=== PATIENT | male | born 1955 | race Caucasian/White ===

== ENCOUNTER → 2017-03-04 | Outpatient (CLI) | payer OTHER ==
[~2017-03-04] MED LIST: ALBUTEROL2.5 MG/0.5 INH; DILANTIN100 MG PO; FOLGARD/FOLTAB1 TAB PO; HYDROXYZINE PAM50 MG PO; LIBRIUM5 MG PO; NICOTINE T21 MG/24 H T; NKHM; PAXIL10 MG PO; PREDNISONE10 MG PO; ROBAXIN750 MG PO; Theragran M,Cen1 TAB PO; VITAMIN B-11 TAB PO; ZITHROMAX250 MG PO
[2017-03-04 08:25] LABS: HEMATOCRIT 42.6 % (42.0-52.0); HEMOGLOBIN 14.8 g/dl (14.0-18.0); MEAN CELL VOLUME 94.9 fl (80.0-94.0); MEAN CORPUSCULAR HGB CONC 34.7 g/dl (33.0-37.0); MEAN PLATELET VOLUME 9.4 fl (9.6-12.3); PLATELET COUNT AUTOMATED 230 10*3/uL (130-400); RED BLOOD COUNT 4.49 10*6/uL (4.50-5.90); RED CELL DISTRI WIDTH 14.5 % (0-14.5); WHITE BLOOD COUNT 6.9 10*3/uL (4.8-10.8)
[2017-03-04 08:53] LABS: HEMOGLOBIN A1c 5.4 % (4.8-5.6)
[2017-03-04 09:02] LABS: BILIRUBIN, TOTAL 0.6 mg/dl (0.2-1.0); BUN 8 mg/dl (7-24); CARBON DIOXIDE 27 mmol/L (21-32); CHLORIDE 106 mmol/L (98-107); CHOLESTEROL 202 mg/dL (<200); EST GLOM FILT AFRICAN AMERICAN > 60 ml/min; GLUCOSE 78 mg/dL (65-99); POTASSIUM 4.3 mmol/L (3.5-5.1); SGOT/AST 25 IU/L (3-35); SGPT/ALT 22 U/L (12-78); SODIUM 141 mmol/L (136-145); TOTAL PROTEIN 7.1 gm/dL (6.4-8.2); TRIGLYCERIDES 66 mg/dl (<150); VLDL CHOLESTEROL 13 mg/dL (6-40)
[2017-03-04 09:11] LABS: ALKALINE PHOSPHATASE 92 U/L (45-117); HDL CHOLESTEROL 69 mg/dl (40-60); LDL CHOLESTEROL 120 mg/dL (9-159)
[2017-03-04 09:22] LABS: FOLIC ACID 12.74 ng/mL (>5.38); VITAMIN D, 25-HYDROXY 30.1 ng/mL (30-100)
[2017-03-04 09:24] LABS: ATYPICAL LYMPHS 1 % (0-0); BASOPHIL # 0.1 10*3/uL (0-0.1); BASOPHILS 1 % (0-1); EOSINOPHIL # 0.2 10*3/uL (0-0.4); EOSINOPHILS 3 % (1-4); LYMPHOCYTE # 2.1 10*3/uL (1.3-4.4); MONOCYTE # 0.6 10*3/uL (0.1-1.0); NEUTROPHILS 58 % (47-73); PLATELET SUFFICIENCY NORMAL (NORMAL); TOTAL CELLS COUNTED 100 #CELLS
== END | disposition home or self-care (01) ==
LOC: LAB 08:09
PROVIDERS: Family Medicine
DX: Z13.220 Encounter for screening for lipoid disorders (principal); F41.9 Anxiety disorder, unspecified; D53.9 Nutritional anemia, unspecified; F10.21 Alcohol dependence, in remission; R73.9 Hyperglycemia, unspecified; R79.89 Other specified abnormal findings of blood chemistry

== ENCOUNTER → 2017-03-22 | Outpatient (CLI) | payer OTHER ==
[~2017-03-22] MED LIST changes: +LEVAQUIN750 M1 PO; +PREDNISONE50 MG PO
--- NOTE | ~2017-03-22 | PF ---
[place], [place] PULMONARY FUNCTION TEST NAME: SHAMEKA MCCALLUM UNIT #: [id number] ROOM: DOCTOR: ELENO BECKETT MD,KAREN BIRTHDATE: [birth year] DOS: 03/22/2017 ORDERED BY: Joel Douglas DO HISTORY: The patient recorded as 61-year-old male, height of 64 inches, weight of 123 pounds with symptoms of shortness of breath with exertion and productive cough without any wheezing. Continued chronic tobacco use noted 1.5 pack of cigarettes per day for 40 years. SPIROMETRY: The FVC was recorded 3.10 liters, 81% predicted value normal. The FEV1 was noted 2.36 liters, 81% predicted value normal as well. The ratio of FEV1/FVC was recorded 76%. Flow volume loop was suggestive of mild obstructive airway pattern. Lung volumes, the spirometry was noted normal except mild obstructive lung disease was suggestive with the flow volume loop. Thoracic gas volume recorded 174%, residual volume 195%. RV/TLC ratio 169%, total lung capacity of 118%. Lung volumes suggestive of moderate air trapping. The patient's lung diffusion noted normal at 85%. The patient's airway resistance and passive conductance were noted normal. FINAL IMPRESSION: Possibility of mild obstructive lung disease can be completely excluded with current pulmonary function test. Clinical correlation was advised. KAREN JOHANSEN MD CM:PFREPORT:PULMONARY FUNCTION TEST 1530 [id number] KAREN BECKETT MD
== END | disposition home or self-care (01) ==
LOC: CP 08:16
DX: R05 Cough (principal); F17.210 Nicotine dependence, cigarettes, uncomplicated; R06.02 Shortness of breath

== ENCOUNTER 2017-03-25 09:57 | Emergency (ER) | payer OTHER ==
[~2017-03-25] VITALS: Ht 162.5 cm; Wt 54.4 kg
[~2017-03-25 09:57] MED LIST changes: -LEVAQUIN750 M1 PO; -PREDNISONE50 MG PO
[2017-03-25] MEDS ORDERED: LEVAQUIN750 M1 PO (11:55)
[2017-03-25] MEDS ORDERED: PREDNISONE50 MG PO (11:55)
== END 2017-03-25 12:25 | disposition home or self-care (01) ==
LOC: ED 09:57
DX: J18.9 Pneumonia, unspecified organism (principal); J44.9 Chronic obstructive pulmonary disease, unspecified; F17.200 Nicotine dependence, unspecified, uncomplicated